=== PATIENT | male | born 1960 | race American Indian/Alaskan Native ===

== ENCOUNTER 2020-07-06 19:09 | Inpatient (IN) | payer MEDICARE, OTHER ==
--- NOTE | 2020-07-06 20:00 | Emergency Department Report ---
- General Chief complaint: BP Check / Ring removal req Stated complaint: GENERAL WEAKNESS PUI?: No Time Seen by Provider: 07/06/20 19:48 Source: patient, EMS Mode of arrival: Stretcher Limitations: No Limitations - History of Present Illness Initial comments: Mr. Alvarado is a 59-year-old male with history of hypertension, diabetes mellitus, hyperlipidemia, CVA, blindness in the right eye who presents with generalized weakness. EMS called by family members. Patient was found on the floor with decreased responsiveness. Patient states he has been weak for the past day. No new changes in his medicines. He has been eating or drinking. He denies new weakness in her extremities. He initially thought he was having a stroke. Patient found to be hypotensive via EMS. MD Complaint: generalized weakness -: days(s) (1) Location: generalized Severity: moderate Severity scale (0 -10): 0 Consistency: constant Improves with: none Worsens with: none Associated Symptoms: denies other symptoms - Related Data Allergies Allergy/AdvReac Type Severity Reaction Status Date / Time No Known Allergies Allergy Unverified 07/06/20 19:49 ED Review of Systems ROS: Stated complaint: GENERAL WEAKNESS Other details as noted in HPI Comment: All other systems reviewed and negative Constitutional: malaise. denies: chills, fever Respiratory: denies: cough, shortness of breath Cardiovascular: denies: chest pain Gastrointestinal: denies: abdominal pain, nausea, vomiting Neurological: denies: headache, numbness, paresthesias ED Past Medical Hx - Past Medical History Hx Hypertension: Yes Hx CVA: Yes Hx Diabetes: Yes Additional medical history: Hyperlipidemia - Family History Family history: hypertension - Social History Smoking Status: Never Smoker Substance Use Type: None ED Physical Exam - General Limitations: No Limitations General appearance: alert, in no apparent distress - Head Head exam: Present: atraumatic, normocephalic - Eye Eye exam: Present: other (Left eye normal appearance, right eye: globe is small, malformed, sunkened, opaque lens) - ENT ENT exam: Present: mucous membranes moist - Neck Neck exam: Present: normal inspection, full ROM - Respiratory Respiratory exam: Present: normal lung sounds bilaterally. Absent: respiratory distress, wheezes, rales - Cardiovascular Cardiovascular Exam: Present: regular rate, normal rhythm, normal heart sounds. Absent: systolic murmur, diastolic murmur, rubs, gallop - GI/Abdominal GI/Abdominal exam: Present: soft, normal bowel sounds. Absent: distended, tenderness, guarding, rebound - Rectal Rectal exam: Present: deferred - Extremities Exam Extremities exam: Present: normal inspection - Neurological Exam Neurological exam: Present: alert, oriented X3 - Psychiatric Psychiatric exam: Present: normal affect, normal mood - Skin Skin exam: Present: warm, dry, intact, normal color. Absent: rash ED Course Vital Signs 07/06/20 07/06/20 07/06/20 19:49 19:58 20:00 Temperature 97.6 F Pulse Rate 93 H 93 H 93 H Respiratory 18 27 H 24 Rate Blood Pressure Blood Pressure 87/61 [Right] O2 Sat by Pulse 99 Oximetry 07/06/20 07/06/20 07/06/20 20:15 20:30 20:46 Temperature Pulse Rate 90 93 H 91 H Respiratory 21 26 H 23 Rate Blood Pressure 87/63 95/71 90/67 Blood Pressure [Right] O2 Sat by Pulse 100 100 Oximetry 07/06/20 07/06/20 07/06/20 21:15 21:30 21:45 Temperature Pulse Rate 92 H 92 H 92 H Respiratory 26 H 25 H 27 H Rate Blood Pressure 100/70 104/76 96/69 Blood Pressure [Right] O2 Sat by Pulse 100 100 99 Oximetry 07/06/20 07/06/20 07/06/20 22:08 22:16 22:30 Temperature Pulse Rate Respiratory 29 H 26 H 30 H Rate Blood Pressure 96/69 96/69 110/79 Blood Pressure [Right] O2 Sat by Pulse 96 Oximetry ED Medical Decision Making - Lab Data Result diagrams: 07/06/20 19:59 07/06/20 19:59 - EKG Data -: EKG Interpreted by [facility] EKG shows normal: sinus rhythm, axis, ST-T waves Rate: normal - EKG Data 07/06/20 20:41 EKG obtained 2033 interpreted by tx Normal sinus rhythm rate 90 bpm normal axis normal QTC right bundle branch block no ST elevation nonischemic T wave pattern - Radiology Data Radiology results: report reviewed CT ABDOMEN AND PELVIS WITHOUT CONTRAST INDICATION / CLINICAL INFORMATION: Abdominal Pain. TECHNIQUE: Axial CT images were obtained through the abdomen and pelvis without IV contrast. All CT scans at this location are performed using CT dose reduction for ALARA by means of automated exposure control. COMPARISON: CT abdomen pelvis 04/10/2020; MRCP 04/11/2020; ultrasound abdomen 04/10/2020 FINDINGS: LOWER CHEST: Unchanged 1.3 cm spiculated cavitary opacity in the right lower lobe. Patchy mosaic attenuation similar compared to 04/10/2020. Aortic valve calcification. Multivessel coronary artery atherosclerotic calcification. HEPATOBILIARY: 2 hypodense liver lesions are visualized the right hepatic lobe on axial series 2 images 38 and 59 with the largest measuring approximately 4 cm. Finding not definitely seen on prior examinations. Gallbladder is filled with there is sludge and small calcified stones. The common bile duct remains prominent measuring approximately 7 mm. No significant intrahepatic pillar ductal dilatation is present. No findings to suggest acute cholecystitis. PANCREAS: No significant abnormality. SPLEEN: No significant abnormality. ADRENALS: No significant abnormality. GENITOURINARY: Markedly distended bladder measuring approximately 13.6 x 13.4 x 16.0 cm in AP by TV by CC dimension. There is moderate left renal pelvocaliectasis and moderate right hydroureter slightly greater when compared to the prior examination. No evidence of right- sided structure uropathy. Small right renal cyst appears stable. GASTROINTESTINAL/MESENTERY: Diverticulosis coli without evidence of diverticulitis. No evidence of bowel obstruction or inflammation. No free air or significant free fluid. RETROPERITONEUM: No significant adenopathy. REPRODUCTIVE ORGANS: Displaced by the marked be enlarged bladder. VASCULAR: Extensive atherosclerotic calcification of the abdominal aorta. Nonaneurysmal. SKELETAL SYSTEM: Postoperative change of posterior lumbar fusion and diffuse degenerative change. No acute fracture or aggressive osseous lesion. ADDITIONAL FINDINGS: Left-sided gluteal musculature lipoma. IMPRESSION: 1. Marked bladder distention with displacement of the surrounding viscera and increasing left-sided obstructive uropathy as detailed above. Consider in and out catheterization and findings may represent neurogenic bladder. 2. 1.3 cm right lower lobe spiculated lung nodule concerning for neoplasm. New hypodense right hepatic lobe lesions measure up to 4 cm. Recommend further evaluation with contrast-enhanced MR or CT. 3. Additional findings as above. - Medical Decision Making 1. septic shock due to complicated UTI: Sepsis protocol initiated upon jimmy ent's arrival. Patient received broad-spectrum antibiotics, 30 mls/kg NS bolus 2. Acute urinary retention due to BPH diagnosed according to CT: After Wilcox was placed, 900 mL of urine immediately collected in the drainage bag 3. ANAY due to obstructive uropathy 4. Enteritis seen on CT scan, nurse noted copious malodorous diarrhea. Unclear etiology. Patient is a poor historian. Considering limited portion of small bowel is involved, C. difficile colitis not as likely. Critical Care Time: Yes Critical care time in (mins) excluding proc time.: 40 Critical care attestation.: If time is entered above; I have spent that time in minutes in the direct care of this critically ill patient, excluding procedure time. 40 minutes of critical care time excluding procedures were used in the care of the patient. I reviewed electronic record. I discussed treatment plan with the nursing team members at the bedside. I came immediately to the bedside immediately upon patient's arrival. I obtained history from EMS. Also concern for septic shock with hypotension documented here and observe via EMS. I was concerned for cardiovascular collapse. Patient required multiple interventions and reassessments. ED Disposition Clinical Impression: Septic shock, Complicated UTI (urinary tract infection), Obstructive uropathy, Acute prerenal failure, BPH (benign prostatic hyperplasia), Enteritis Disposition: 09 OP ADMIT IP TO THIS HOSP Is pt being admited?: Yes Does the pt Need Aspirin: No Condition: Fair
--- NOTE | 2020-07-06 20:14 | XRay Report ---
CHEST 1 VIEW INDICATION / CLINICAL INFORMATION: weakness, generalized. COMPARISON: None available. FINDINGS: SUPPORT DEVICES: None. HEART / MEDIASTINUM: Tortuous aorta. Cardiac silhouette and hilar contours demonstrate no significant abnormality. LUNGS / PLEURA: No significant pulmonary or pleural abnormality. No pneumothorax. ADDITIONAL FINDINGS: No significant additional findings. IMPRESSION: 1. No acute cardiopulmonary process. Signer Name: Julio Tompkins MD Signed: 07/06/2020 8:10 PM Workstation Name: [id number]
[2020-07-06 20:21] LABS: Hemoglobin 11.8 gm/dl (11.8-15.2); Mean Corpuscular HGB Conc 34 % (32-34); Mean Corpuscular Volume 87 fl (84-94); Red Blood Count 4.03 M/mm3 (3.65-5.03); Red Cell Distribution Width 15.2 % (13.2-15.2)
[2020-07-06] MEDS ORDERED: cefTRIAXone/NS 2 GM/100 ML 2 GM/100 ML BAG IV ONE (20:38)
[2020-07-06] MEDS ORDERED: SODIUM CHLORIDE 0.9% 1000 ML IV SOLN IV ONE (20:39)
[2020-07-06 20:43] LABS: Albumin 2.9 g/dL (3.9-5); Calcium 8.2 mg/dL (8.4-10.2)
[2020-07-06 21:27] LABS: Basophils % (Manual) 0 % (0.0-1.8); Eosinophils % (Manual) 0 % (0.0-4.3); RBC Morphology Normal; Total Cells Counted 100
[2020-07-06 21:30] LABS: Platelet Count 84 K/mm3 (140-440)
--- NOTE | 2020-07-06 22:45 | Cat Scan Report ---
CT CHEST, ABDOMEN, AND PELVIS WITHOUT CONTRAST INDICATION / CLINICAL INFORMATION: Septic shock. TECHNIQUE: Axial CT images were obtained through the chest, abdomen, and pelvis without contrast. All CT scans a t this location are performed using CT dose reduction for ALARA by means of automated exposure contro l. COMPARISON: None available. FINDINGS: NECK BASE: No significant abnormality. HEART: Small pericardial effusion. Normal size heart. MEDIASTINUM and ALVARO: No significant abnormality. LUNGS/PLEURA: Bibasilar mosaic attenuation with interlobular septal thickening. No focal consolidatio n or mass. No pleural effusion or pneumothorax. HEPATOBILIARY: No significant abnormality. PANCREAS: No significant abnormality. SPLEEN: No significant abnormality. ADRENALS: No significant abnormality. GENITOURINARY: Bilateral mild ureteral ectasia likely secondary to marked bladder distention. Otherwi se satisfactory noncontrast appearance of the kidneys. GASTROINTESTINAL/MESENTERY: No evidence of bowel obstruction. There are multiple loops of small bowel in the left upper quadrant that demonstrate wall thickening. There is scattered mild distention of t he remaining small bowel loops which are fluid-filled. No definite evidence of free air or significan t free fluid. Appendix is not definitively visualized, however there is no evidence of right lower qu adrant inflammatory change. RETROPERITONEUM: No significant adenopathy. REPRODUCTIVE ORGANS: Prostatomegaly. VASCULAR: Tortuous, mildly atherosclerotic aorta which measures at the upper limits of normal without evidence of aneurysmal dilatation. Few foci of air in the right jugular and innominate vein possibly secondary to catheterization. SKELETAL SYSTEM: No significant abnormality. ADDITIONAL FINDINGS: None. IMPRESSION: 1. Thickening of distal left upper quadrant small bowel loops possibly representing enteritis. No maura dence of obstruction or pneumoperitoneum. Evaluation is slightly limited by lack of oral contrast. 2. Bibasilar pulmonary mosaic attenuation with interlobular septal thickening possibly representing s mall vessel or small airways disease. 3. Markedly distended bladder with mild bilateral ureteral ectasia. Consider in and out catheterizati on. 4. Small pericardial effusion. Signer Name: Julio Tompkins MD Signed: 07/06/2020 4:38 PM Workstation Name: [id number]
[2020-07-07 00:38] LABS: Bacteria,Urine 4+ /HPF (Negative); Bilirubin,Urine NEG (Negative); Blood,Urine LG (Negative); Color,Urine Yellow (Yellow); Mucus,Urine 3+ /HPF; Urobilinogen,Urine < 2.0 mg/dL (<2.0)
[2020-07-07] MEDS ORDERED: ACETAMINOPHEN 325 MG TAB PO PRN (00:45)
[2020-07-07] MEDS ORDERED: MAGNESIUM HYDROXIDE (MOM) ORAL LIQD UDC PO PRN (00:45)
[2020-07-07] MEDS ORDERED: ONDANSETRON 4 MG/2 ML INJ IV PRN (00:45)
[2020-07-07] MEDS ORDERED: DEXTROSE 50% IN WATER (25GM) 50 ML SYRINGE IV PRN (00:45)
[2020-07-07 00:55] LABS: Amphetamine Screen,Urine PRESUMPTIVE NEGATIVE; Benzodiazepines Screen,Urine PRESUMPTIVE NEGATIVE; Cannabinoid Screen,Urine PRESUMPTIVE NEGATIVE; Cocaine Screen,Urine PRESUMPTIVE NEGATIVE; Methadone Screen,Urine PRESUMPTIVE NEGATIVE; Opiate Screen,Urine PRESUMPTIVE NEGATIVE
--- NOTE | 2020-07-07 00:56 | History and Physical Report ---
History of Present Illness Date of examination: 07/07/20 Date of admission: 07/07/2020 Chief complaint: Weakness Decreased responsiveness. History of present illness: 59-year-old male with known history of hypertension, diabetes mellitus, hyperlipidemia, history of CVA, blindness in the right eye presenting to the emergency room with generalized weakness. Patient was said to have been found on the floor with decreased level of responsiveness. EMS was called by the family members. He has been having generalized weakness over the past few days and he has had decreased oral intake. Patient found to be hypotensive by EMS and therefore was given IV fluid. There has been no history of fever or chills, no chest pain or shortness of breath, no nausea vomiting, no diarrhea, no hematuria or dysuria. Work-up in the emergency room reveals urinary tract infection, sepsis, patient was also found to have obstructive uropathy. He had a distended bladder upon arrival in the emergency room with urinary retention and a Wilcox catheter was subsequently placed. Past History Past Medical History: diabetes, hypertension, hyperlipidemia, stroke, other (Right eye blindness) Past Surgical History: No surgical history Social history: no significant social history Family history: no significant family history Medications and Allergies Allergies Allergy/AdvReac Type Severity Reaction Status Date / Time No Known Allergies Allergy Unverified 07/06/20 19:49 Review of Systems Constitutional: no fever, no chills Ears, nose, mouth and throat: no nasal congestion, no sore throat Cardiovascular: no chest pain, no palpitations Respiratory: no cough, no shortness of breath Gastrointestinal: abdominal pain, nausea, no vomiting, no diarrhea, no BRBPR Genitourinary Male: urinary hesitancy, urinary retention, no dysuria, no hematuria, no flank pain Musculoskeletal: no neck pain, no low back pain Integumentary: no rash, no pruritis Neurological: weakness, no headaches, no confusion Psychiatric: no anxiety, no depression Exam - Constitutional Vitals: Temp Pulse Resp BP Pulse Ox 97.6 F 92 H 30 H 110/79 96 07/06/20 19:49 07/06/20 21:45 07/06/20 22:30 07/06/20 22:30 07/06/20 22:08 General appearance: Present: no acute distress, well-nourished - EENT Eyes: Present: PERRL, EOM intact. Absent: scleral icterus ENT: hearing intact, clear oral mucosa, dentition normal - Neck Neck: Present: supple, normal ROM - Respiratory Respiratory effort: normal Respiratory: bilateral: CTA - Cardiovascular Rhythm: regular Heart Sounds: Present: S1 & S2. Absent: gallop, systolic murmur, diastolic murmur, rub - Extremities Extremities: no ischemia, pulses intact, pulses symmetrical, No edema, normal color, Full ROM Peripheral Pulses: within normal limits - Abdominal General gastrointestinal: Present: soft, non-tender, non-distended, normal bowel sounds. Absent: mass - Integumentary Integumentary: Present: clear, warm, dry. Absent: rash - Musculoskeletal Musculoskeletal: strength equal bilaterally - Psychiatric Psychiatric: appropriate mood/affect, intact judgment & insight, cooperative - Neurologic Neurologic: CNII-XII intact, no focal deficits, moves all extremities HEART Score - HEART Score Troponin: Troponin T 0.014 ng/mL (0.00-0.029) 07/06/20 19:59 Results - Labs CBC & Chem 7: 07/06/20 19:59 07/06/20 19:59 Labs: Abnormal lab results 07/06/20 07/06/20 07/06/20 Range/Units 19:59 19:59 19:59 WBC 20.4 H (4.5-11.0) K/mm3 Hct 35.0 L (35.5-45.6) % Plt Count 84 L (140-440) K/mm3 Seg Neuts % (Manual) 91.0 H (40.0-70.0) % Lymphocytes % (Manual) 5.0 L (13.4-35.0) % Seg Neutrophils # Man 18.6 H (1.8-7.7) K/mm3 Lymphocytes # (Manual) 1.0 L (1.2-5.4) K/mm3 Sodium 133 L (137-145) mmol/L Potassium 3.4 L (3.6-5.0) mmol/L Chloride 93.2 L (98-107) mmol/L Carbon Dioxide 17 L (22-30) mmol/L BUN 65 H (9-20) mg/dL Creatinine 5.7 H (0.8-1.3) mg/dL Glucose 105 H (75-100) mg/dL Lactic Acid 2.70 H* (0.7-2.0) mmol/L Calcium 8.2 L (8.4-10.2) mg/dL Total Bilirubin 2.90 H (0.1-1.2) mg/dL Albumin 2.9 L (3.9-5) g/dL Lipase (13-60) units/L Urine WBC (Auto) (0.0-6.0) /HPF 07/06/20 07/06/20 Range/Units 20:44 23:38 WBC (4.5-11.0) K/mm3 Hct (35.5-45.6) % Plt Count (140-440) K/mm3 Seg Neuts % (Manual) (40.0-70.0) % Lymphocytes % (Manual) (13.4-35.0) % Seg Neutrophils # Man (1.8-7.7) K/mm3 Lymphocytes # (Manual) (1.2-5.4) K/mm3 Sodium (137-145) mmol/L Potassium (3.6-5.0) mmol/L Chloride (98-107) mmol/L Carbon Dioxide (22-30) mmol/L BUN (9-20) mg/dL Creatinine (0.8-1.3) mg/dL Glucose (75-100) mg/dL Lactic Acid (0.7-2.0) mmol/L Calcium (8.4-10.2) mg/dL Total Bilirubin (0.1-1.2) mg/dL Albumin (3.9-5) g/dL Lipase 8 L (13-60) units/L Urine WBC (Auto) 105.0 H (0.0-6.0) /HPF Assessment and Plan - Patient Problems (1) Septic shock Current Visit: Yes Status: Acute Plan to address problem: Possibly secondary to underlying infection. He has been placed on IV fluid and empiric IV antibiotics. We will monitor vital signs closely will await culture results. (2) Acute prerenal failure Current Visit: Yes Status: Acute Plan to address problem: We will continue to monitor BUN and creatinine. Continue IV fluid. (3) Complicated UTI (urinary tract infection) Current Visit: Yes Status: Acute Plan to address problem: Patient has been placed on empiric IV antibiotics and we will await urine culture results. (4) Obstructive uropathy Current Visit: Yes Status: Acute Plan to address problem: Patient has had a Wilcox catheter placed. (5) DVT prophylaxis Current Visit: Yes Status: Acute Plan to address problem: Patient placed on subcutaneous heparin. (6) Full code status Current Visit: Yes Status: Acute
[2020-07-07] MEDS: SODIUM CHLORIDE 0.9% 1000 ML 1,000 ML IV SCH ×2 (05:18→14:28)
[2020-07-07] MEDS: INSULIN LISPRO 100 UNIT/ML VIAL 3 mL SUB-Q SCH ×4 (09:00→21:02)
[2020-07-07] MEDS: cefTRIAXone/NS 1 GM/50 ML 1 GM/50 ML BAG IV SCH (10:52)
[2020-07-07 11:29] LABS: Hematocrit 32.2 % (35.5-45.6); Hemoglobin 11.2 gm/dl (11.8-15.2); Mean Corpuscular HGB Conc 35 % (32-34); Mean Corpuscular Volume 86 fl (84-94); Red Blood Count 3.73 M/mm3 (3.65-5.03); Red Cell Distribution Width 15.1 % (13.2-15.2)
[2020-07-07 11:30] LABS: Platelet Count 66 K/mm3 (140-440)
[2020-07-07 12:01] LABS: Calcium 7.6 mg/dL (8.4-10.2)
[2020-07-07] MEDS: HEPARIN 5,000 UNIT/1 ML VIAL SUB-Q SCH ×2 (14:24→21:29)
--- NOTE | 2020-07-07 14:24 | Consultation ---
History of Present Illness - Reason for Consult Consult date: 07/07/20 acute renal failure Requesting physician: NEGRITO GONZALEZ - History of Present Illness 59-year-old male with history of hypertension, denies a history of diabetes mellitus, prior cerebrovascular accident who had urinary retention and saw urologist a couple of months ago. A Wilcox catheter was inserted in and out and he was being evaluated for possible benign prostatic hyperplasia. He has not had a follow-up appointment yet. Presents on account of decreased responsiveness as was found on the floor by family. Patient notes that he has been feeling weak for a few days. He denies any nausea or vomiting. He does admit to hesitancy of micturition with straining and poor stream. He also had lower abdominal pain on passing urine. Patient also noticed a decrease in urine output over the last several days. In the ER, blood pressure was low at 87/[address] scan showed markedly distended urinary bladder displacing surrounding viscera with left pelvicaliectasis and right hydroureter. There was also diverticulosis without diverticulitis. Wilcox catheter was not started. BUN/creatinine were found to be elevated at 75/5.1 mg/dL with bicarbonate low at 16 mmol/L. I am consulted to assist with managing renal failure. Patient has not been taking nonsteroidal anti-inflammatory drugs and has not been exposed to radiocontrast recently. He admits to diarrhea but just since yesterday. 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 denies: smoking, alcohol abuse, prescription drug abuse Family history: no significant family history, other (His father is about 80 years old alive and well. Does not know the cause of of the mother) Medications and Allergies Allergies Allergy/AdvReac Type Severity Reaction Status Date / Time No Known Allergies Allergy Unverified 07/06/20 19:49 Active Meds: Active Medications Acetaminophen (Tylenol) 650 mg PO Q4H PRN PRN Reason: Pain MILD(1-3)/Fever >100.5/SANCHEZ Dextrose (D50w (25gm) Syringe) 0 ml IV Q30MIN PRN; Protocol PRN Reason: Hypoglycemia Heparin Sodium (Porcine) (Heparin) 5,000 unit SUB-Q Q8HR TRIPP Sodium Chloride (Nacl 0.9% 1000 Ml) 1,000 mls @ 125 mls/hr IV DIRECT TRIPP Last Admin: 07/07/20 05:18 Dose: 125 mls/hr Documented by: Ceftriaxone Sodium (Rocephin/Ns 1 Gm/50 Ml) 1 gm in 50 mls @ 100 mls/hr IV Q24HR TRIPP; Protocol Last Admin: 07/07/20 10:52 Dose: 100 mls/hr Documented by: Insulin Human Lispro (Humalog) 0 unit SUB-Q ACHS TRIPP; Protocol Last Admin: 07/07/20 12:00 Dose: Not Given Documented by: Magnesium Hydroxide (Milk Of Magnesia) 30 ml PO Q4H PRN PRN Reason: Constipation Ondansetron HCl (Zofran) 4 mg IV Q8H PRN PRN Reason: Nausea And Vomiting Sodium Chloride (Sodium Chloride Flush Syringe 10 Ml) 10 ml IV BID [facility] Last Admin: 07/07/20 10:52 Dose: 10 ml Documented by: Sodium Chloride (Sodium Chloride Flush Syringe 10 Ml) 10 ml IV PRN PRN PRN Reason: LINE FLUSH Review of Systems All systems: negative (Constitutional: no fever or chills. No anorexia or weight loss. HEENT: No sore throat or sinus drainage no hearing. He is blind in the left eye following trauma playing basketball about 20 years ago. Cardiovascular: No chest pain, shortness of breath, palpitations, lower extremity swelling or dizziness. Respiratory: No cough, sputum, shortness of breath, hemoptysis or wheezing. Gastrointestinal: No nausea, vomiting, diarrhea, had lower abdominal pain with symptoms of reflux. No hematemesis or melena. Genitourinary: See history of present illness. No hematuria. hematologic: No abnormal bleeding or bruising. Integumentary: no pruritus or rash. Neurological: No headache no focal weakness or numbness, no syncope or seizures. Musculoskeletal: No joint pains no stiffness. Psychiatry: no anxiety or depression) Exam - Vital Signs Vital signs: Vital Signs Temp Pulse Resp BP Pulse Ox 97.6 F 93 H 18 87/61 99 07/06/20 19:49 07/06/20 19:49 07/06/20 19:49 07/06/20 19:49 07/06/20 19:49 - Physical Exam Narrative exam: Middle-aged -[place] male lying in bed in no acute distress HEENT: NCAT, left opaque, pink oral mucous membrane Neck: Supple, no venous distention CVS: S1S2 RRR with no murmur, rub or gallop Chest: Clear to auscultation Abdomen: Protuberant, soft, nontender, no organomegaly, bowel sounds are present Extremities: No edema Genitourinary deferred. Wilcox catheter draining clear urine. Skin warm and dry, no rash Neuro: Awake, alert no focal deficits Results - Lab Results 07/07/20 10:58 07/07/20 10:58 Most recent lab results Calcium 7.6 mg/dL (8.4-10.2) L 07/07/20 10:58 Assessment and Plan - Patient Problems (1) Other acute kidney failure Current Visit: Yes Status: Acute Plan to address problem: Acute kidney injury secondary to obstructive uropathy. Superimposed prerenal azotemia versus acute tubular necrosis secondary to hypotension and sepsis. Patient had Wilcox catheter inserted. Quantify proteinuria. Gentle volume repletion. Follow-up electrolytes and renal function. It is unclear if patient has baseline chronic kidney disease possibly secondary to hypertensive nephrosclerosis. No old records available. Patient is not aware of this (2) Complicated UTI (urinary tract infection) Current Visit: Yes Status: Acute Plan to address problem: Follow-up urine culture. Continue empiric antibiotics. (3) Metabolic acidosis Current Visit: Yes Status: Acute Plan to address problem: Give sodium bicarbonate and IV fluids and follow-up level (4) Hypotension Current Visit: Yes Status: Acute Plan to address problem: Volume repletion and follow-up blood pressure (5) Hypocalcemia Current Visit: Yes Status: Acute Plan to address problem: Check serum intact PTH. Supplement calcium and follow-up (6) Thrombocytopenia Current Visit: Yes Status: Acute Plan to address problem: Possibly secondary to sepsis. Follow-up platelet count. (7) Hypertensive chronic kidney disease with stage 1 through stage 4 chronic k idney disease, or unspecified chronic kidney disease Current Visit: Yes Status: Acute Plan to address problem: Blood pressure was low on presentation. Follow-up blood pressure off of medications. Will resume when blood pressure increases (8) Obstructive uropathy Current Visit: Yes Status: Acute Plan to address problem: Possibly related to benign prostatic hyperplasia. Status post Wilcox catheter. Start Flomax. Will need urology re-evaluation at some point
--- NOTE | 2020-07-07 16:32 | Event Note ---
Date: 07/07/20 patient seen and examined 59-year-old male with known history of hypertension, diabetes mellitus, hyperlipidemia, history of CVA, blindness in the right eye presenting to the emergency room with generalized weakness and decreased level of responsiveness. Work-up in the emergency room reveals urinary tract infection, sepsis, patient was also found to have obstructive uropathy. He had a distended bladder upon arrival in the emergency room with urinary retention and a Wilcox catheter was subsequently placed. Cr remain elevated, cont iv fluid and monitor BMP cont iv fluid
[2020-07-07] MEDS: SODIUM BICARBONATE 650 MG TAB PO SCH (21:29)
[2020-07-08] MEDS: HEPARIN 5,000 UNIT/1 ML VIAL SUB-Q SCH ×3 (05:01→22:25)
[2020-07-08 05:22] LABS: Basophils % (Auto) 0.2 % (0.0-1.8); Eosinophils # (Auto) 0.1 K/mm3 (0.0-0.4); Eosinophils % (Auto) 0.5 % (0.0-4.3); Hematocrit 34.1 % (35.5-45.6); Hemoglobin 11.6 gm/dl (11.8-15.2); Lymphocytes # (Auto) 0.7 K/mm3 (1.2-5.4); Lymphocytes % (Auto) 4.2 % (13.4-35.0); Mean Corpuscular HGB Conc 34 % (32-34); Mean Corpuscular Volume 86 fl (84-94); Monocytes # (Auto) 0.9 K/mm3 (0.0-0.8); Monocytes % (Auto) 5.9 % (0.0-7.3); Red Blood Count 3.97 M/mm3 (3.65-5.03)
[2020-07-08 05:35] LABS: Platelet Count 61 K/mm3 (140-440)
[2020-07-08 05:37] LABS: INR 1.27 (0.87-1.13)
[2020-07-08 05:43] LABS: Calcium 8.3 mg/dL (8.4-10.2)
[2020-07-08] MEDS: INSULIN LISPRO 100 UNIT/ML VIAL 3 mL SUB-Q SCH ×3 (08:00→15:44)
[2020-07-08] MEDS: cefTRIAXone/NS 1 GM/50 ML 1 GM/50 ML BAG IV SCH (10:22)
[2020-07-08] MEDS: SODIUM BICARBONATE 650 MG TAB PO SCH ×3 (10:22→22:24)
[2020-07-08] MEDS: SODIUM CHLORIDE 0.9% 1000 ML 1,000 ML IV SCH ×2 (10:26→18:59)
--- NOTE | 2020-07-08 14:41 | Progress Note ---
Assessment and Plan - Patient Problems (1) Other acute kidney failure Current Visit: Yes Status: Acute Plan to address problem: Acute kidney injury secondary to obstructive uropathy. Superimposed prerenal azotemia versus acute tubular necrosis secondary to hypotension and sepsis. Patient had Wilcox catheter inserted. Continue gentle volume repletion. Follow- up electrolytes and renal function. It is unclear if patient has baseline chronic kidney disease possibly secondary to hypertensive nephrosclerosis. No old records available. Patient is not aware of this (2) Complicated UTI (urinary tract infection) Current Visit: Yes Status: Acute Plan to address problem: Follow-up urine culture. Continue empiric antibiotics. (3) Metabolic acidosis Current Visit: Yes Status: Acute Plan to address problem: Improving. Continue sodium bicarbonate by mouth and follow-up bicarbonate level (4) Hypotension Current Visit: Yes Status: Acute Plan to address problem: Volume repletion and follow-up blood pressure (5) Hypocalcemia Current Visit: Yes Status: Acute Plan to address problem: Calcium improving with supplementation. Serum intact PTH is high but at goal for the stage of kidney disease. Continue calcium supplement and follow-up (6) Thrombocytopenia Current Visit: Yes Status: Acute Plan to address problem: Possibly secondary to sepsis. Follow-up platelet count. (7) Hypertensive chronic kidney disease with stage 1 through stage 4 chronic kid antonio disease, or unspecified chronic kidney disease Current Visit: Yes Status: Acute Plan to address problem: Blood pressure was low on presentation. Follow-up blood pressure off of medications. Will resume when blood pressure increases (8) Obstructive uropathy Current Visit: Yes Status: Acute Plan to address problem: Possibly related to benign prostatic hyperplasia. Status post Wilcox catheter. Continue Flomax. Will need urology re-evaluation at some point -could be done as an outpatient Subjective Date of service: 07/08/20 Principal diagnosis: Acute kidney injury, suspected chronic kidney disease Interval history: Patient seen lying in bed. He has no complaints today. No nausea or vomiting. No abdominal pain. No diarrhea. No chest pain or shortness of breath. Objective - Exam Narrative Exam: Middle-aged -[place] male lying in bed in no acute distress HEENT: NCAT, left eye opaque, pink oral mucous membrane Neck: Supple, no venous distention CVS: S1S2 RRR with no murmur, rub or gallop Chest: Clear to auscultation Abdomen: Protuberant, soft, nontender, no organomegaly, bowel sounds are present Extremities: No edema Genitourinary deferred. Wilcox catheter draining clear urine. Skin warm and dry, no rash Neuro: Awake, alert no focal deficits - Vital Signs Vital signs: Vital Signs - 12hr 07/08/20 07/08/20 03:54 10:00 Temperature 98.4 F Pulse Rate 77 72 Respiratory 14 Rate Blood Pressure 135/98 O2 Sat by Pulse 92 Oximetry - Lab 07/08/20 04:17 07/08/20 04:17 Most recent lab results Calcium 8.3 mg/dL (8.4-10.2) L 07/08/20 04:17 Medications & Allergies - Medications Allergies/Adverse Reactions: Allergies No Known Allergies Allergy (Unverified 07/06/20 19:49) Active Medications: Generic Name Dose Route Start Last Admin Trade Name Freq PRN Reason Stop Dose Admin Acetaminophen 650 mg 07/07/20 00:45 Tylenol PO Q4H PRN Pain MILD(1-3)/Fever >100.5/SANCHEZ Dextrose 0 ml 07/07/20 00:45 D50w (25gm) Syringe IV Q30MIN PRN Hypoglycemia Protocol Heparin Sodium (Porcine) 5,000 unit 07/07/20 14:00 07/08/20 13:42 Heparin SUB-Q 5,000 unit Q8HR TRIPP Administration Sodium Chloride 1,000 mls @ 125 mls/hr 07/07/20 00:45 07/08/20 10:26 Nacl 0.9% 1000 Ml IV 125 mls/hr DIRECT TRIPP Administration Ceftriaxone Sodium 1 gm in 50 mls @ 100 mls/hr 07/07/20 10:00 07/08/20 10:22 Rocephin/Ns 1 Gm/50 Ml IV 100 mls/hr Q24HR TRIPP Administration Protocol Insulin Human Lispro 0 unit 07/07/20 07:30 07/08/20 11:30 Humalog SUB-Q Not Given ACHS TRIPP Protocol Magnesium Hydroxide 30 ml 07/07/20 00:45 Milk Of Magnesia PO Q4H PRN Constipation Ondansetron HCl 4 mg 07/07/20 00:45 07/08/20 10:26 Zofran IV 4 mg Q8H PRN Administration Nausea And Vomiting Sodium Bicarbonate 650 mg 07/07/20 20:00 07/08/20 13:46 Sodium Bicarbonate PO 650 mg TID TRIPP Administration Sodium Chloride 10 ml 07/07/20 10:00 07/08/20 10:22 Sodium Chloride Flush Syringe 10 Ml IV Not Given BID TRIPP Sodium Chloride 10 ml 07/07/20 00:45 Sodium Chloride Flush Syringe 10 Ml IV PRN PRN LINE FLUSH
--- NOTE | 2020-07-08 22:55 | Progress Note ---
Assessment and Plan -- Septic shock responded to fluid Possibly secondary to underlying infection. He has been placed on IV fluid and empiric IV antibiotics. We will monitor vital signs closely will await culture results. -- ANAY, likely ATN from sepsis We will continue to monitor BUN and creatinine. Continue IV fluid. nephrology consulted -- Complicated UTI (urinary tract infection) Patient has been placed on empiric IV antibiotics and we will await urine culture results. -- Obstructive uropathy Patient has had a Wilcox catheter placed. will f/u urology outpt -- HTN, resume BP meds when needed --DM type 2, cont SSI for now -- DVT prophylaxis Patient placed on subcutaneous heparin. -- Full code status 07/08: Cr 5.1 today, cont iv fluid hydration, monitor BMP, follow cx Brief History: 59-year-old male with known history of hypertension, diabetes mellitus, hyperlipidemia, history of CVA, blindness in the right eye presented to the emergency room with generalized weakness and decreased level of responsiveness. Work-up in the emergency room reveals urinary tract infection, sepsis, patient was also found to have obstructive uropathy. He had a distended bladder upon arrival in the emergency room with urinary retention and a Wilcox catheter was subsequently placed. Cr remain elevated, cont iv fluid and monitor BMP, cont iv fluid Subjective Date of service: 07/08/20 Principal diagnosis: Acute kidney injury, suspected chronic kidney disease Interval history: Patient seen and examineed vitals reviewed denies chest pain or SOB tolerating diet Objective - Exam Narrative Exam: General appearance: Present: no acute distress, well-nourished - EENT Eyes: Present: PERRL, EOM intact. Absent: scleral icterus ENT: hearing intact, clear oral mucosa, dentition normal - Neck Neck: Present: supple, normal ROM - Respiratory Respiratory effort: normal Respiratory: bilateral: CTA - Cardiovascular Rhythm: regular Heart Sounds: Present: S1 & S2. Absent: gallop, systolic murmur, diastolic murmur, rub - Extremities Extremities: no ischemia, pulses intact, pulses symmetrical, No edema, normal color, Full ROM Peripheral Pulses: within normal limits - Abdominal General gastrointestinal: Present: soft, non-tender, non-distended, normal bowel sounds. Absent: mass - Integumentary Integumentary: Present: clear, warm, dry. Absent: rash - Musculoskeletal Musculoskeletal: strength equal bilaterally - Psychiatric Psychiatric: appropriate mood/affect, intact judgment & insight, cooperative - Neurologic Neurologic: CNII-XII intact, no focal deficits, moves all extremities. right eye blindness - Constitutional Vitals: Vital Signs - 12hr 07/08/20 07/08/20 07/08/20 12:10 15:31 19:33 Temperature 98.1 F 97.9 F 98.4 F Pulse Rate 76 76 79 Respiratory 18 18 14 Rate Blood Pressure 131/101 139/103 134/99 O2 Sat by Pulse 93 91 94 Oximetry - Labs CBC & Chem 7: 07/09/20 07:39 07/09/20 07:39 Labs: Abnormal lab results 07/08/20 07/08/20 07/08/20 Range/Units 04:17 04:17 04:17 WBC 15.7 H (4.5-11.0) K/mm3 Hgb 11.6 L (11.8-15.2) gm/dl Hct 34.1 L (35.5-45.6) % Plt Count 61 L (140-440) K/mm3 Lymph % (Auto) 4.2 L (13.4-35.0) % Lymph # 0.7 L (1.2-5.4) K/mm3 [place] # 0.9 H (0.0-0.8) K/mm3 Seg Neutrophils % 89.2 H (40.0-70.0) % Seg Neutrophils # 14.1 H (1.8-7.7) K/mm3 PT 16.2 H (12.2-14.9) Sec. INR 1.27 H (0.87-1.13) Carbon Dioxide 19 L (22-30) mmol/L BUN 79 H (9-20) mg/dL Creatinine 4.2 H (0.8-1.3) mg/dL POC Glucose (70-105) Calcium 8.3 L (8.4-10.2) mg/dL PTH Intact (15-65) pg/mL 07/08/20 07/08/20 07/08/20 Range/Units 04:17 11:34 15:50 WBC (4.5-11.0) K/mm3 Hgb (11.8-15.2) gm/dl Hct (35.5-45.6) % Plt Count (140-440) K/mm3 Lymph % (Auto) (13.4-35.0) % Lymph # (1.2-5.4) K/mm3 [place] # (0.0-0.8) K/mm3 Seg Neutrophils % (40.0-70.0) % Seg Neutrophils # (1.8-7.7) K/mm3 PT (12.2-14.9) Sec. INR (0.87-1.13) Carbon Dioxide (22-30) mmol/L BUN (9-20) mg/dL Creatinine (0.8-1.3) mg/dL POC Glucose 131 H 125 H (70-105) Calcium (8.4-10.2) mg/dL PTH Intact 177.0 H (15-65) pg/mL 07/08/20 Range/Units 20:42 WBC (4.5-11.0) K/mm3 Hgb (11.8-15.2) gm/dl Hct (35.5-45.6) % Plt Count (140-440) K/mm3 Lymph % (Auto) (13.4-35.0) % Lymph # (1.2-5.4) K/mm3 [place] # (0.0-0.8) K/mm3 Seg Neutrophils % (40.0-70.0) % Seg Neutrophils # (1.8-7.7) K/mm3 PT (12.2-14.9) Sec. INR (0.87-1.13) Carbon Dioxide (22-30) mmol/L BUN (9-20) mg/dL Creatinine (0.8-1.3) mg/dL POC Glucose 133 H (70-105) Calcium (8.4-10.2) mg/dL PTH Intact (15-65) pg/mL HEART Score - HEART Score Troponin: Troponin T 0.014 ng/mL (0.00-0.029) 07/06/20 19:59
[2020-07-09] MEDS: INSULIN LISPRO 100 UNIT/ML VIAL 3 mL SUB-Q SCH ×5 (00:06→21:56)
[2020-07-09] MEDS: HEPARIN 5,000 UNIT/1 ML VIAL SUB-Q SCH ×2 (06:26→13:15)
[2020-07-09] MEDS: SODIUM CHLORIDE 0.9% 1000 ML 1,000 ML IV SCH ×3 (06:28→22:05)
[2020-07-09 08:06] LABS: Basophils % (Auto) 0.2 % (0.0-1.8); Eosinophils % (Auto) 0.1 % (0.0-4.3); Hemoglobin 11.7 gm/dl (11.8-15.2); Lymphocytes # (Auto) 0.8 K/mm3 (1.2-5.4); Lymphocytes % (Auto) 6.2 % (13.4-35.0); Mean Corpuscular HGB Conc 34 % (32-34); Mean Corpuscular Volume 86 fl (84-94); Monocytes # (Auto) 0.9 K/mm3 (0.0-0.8); Monocytes % (Auto) 6.9 % (0.0-7.3); Red Blood Count 3.95 M/mm3 (3.65-5.03); Red Cell Distribution Width 15.3 % (13.2-15.2)
[2020-07-09 08:15] LABS: Platelet Count 69 K/mm3 (140-440)
[2020-07-09 08:20] LABS: Calcium 8.4 mg/dL (8.4-10.2)
[2020-07-09] MEDS: cefTRIAXone/NS 1 GM/50 ML 1 GM/50 ML BAG IV SCH (09:23)
[2020-07-09] MEDS: SODIUM BICARBONATE 650 MG TAB PO SCH ×3 (09:23→21:57)
--- NOTE | 2020-07-09 11:25 | Progress Note ---
Assessment and Plan - Patient Problems (1) Acute prerenal failure Current Visit: Yes Status: Acute Plan to address problem: Acute kidney injury secondary to obstructive uropathy. renal function improving on smith. It is unclear if patient has baseline chronic kidney disease possibly secondary to hypertensive nephrosclerosis. (2) Complicated UTI (urinary tract infection) Current Visit: Yes Status: Acute Plan to address problem: Follow-up urine culture. Continue empiric antibiotics. (3) Obstructive uropathy Current Visit: Yes Status: Acute Plan to address problem: Possibly related to benign prostatic hyperplasia. Status post Smith catheter. Continue Flomax. Will need urology re-evaluation at some point -could be done as an outpatient (4) Metabolic acidosis Current Visit: Yes Status: Acute Plan to address problem: Improving. Continue sodium bicarbonate by mouth and follow-up bicarbonate level (5) Hypocalcemia Current Visit: Yes Status: Acute Plan to address problem: Calcium improving with supplementation. Serum intact PTH is high but at goal for the stage of kidney disease. Continue calcium supplement and follow-up (6) Thrombocytopenia Current Visit: Yes Status: Acute Plan to address problem: Possibly secondary to sepsis. Follow-up platelet count. (7) Hypertensive chronic kidney disease with stage 1 through stage 4 chronic kidney disease, or unspecified chronic kidney disease Current Visit: Yes Status: Acute Plan to address problem: Blood pressure was low on presentation. Follow-up blood pressure off of medications. Will resume when blood pressure increases Subjective Date of service: 07/09/20 Principal diagnosis: Acute kidney injury, suspected chronic kidney disease Interval history: Pt awake alert, in no acute distress, on smith with excellent UOP Objective - Vital Signs Vital signs: Vital Signs - 12hr 07/09/20 03:48 Temperature 98.1 F Pulse Rate 72 Respiratory 18 Rate Blood Pressure 138/104 O2 Sat by Pulse 96 Oximetry - General Appearance General appearance: well-developed, well-nourished, appears stated age EENT: ATNC, PERRL, mucous membranes moist Neck: no JVD Respiratory: Present: Clear to Ascultation Cardiology: regular, S1S2 Gastrointestinal: normoactive bowel sounds Integumentary: no rash, other (no edema ) Neurologic: no focal deficit, alert and oriented x3, strength 5/5, CN 3-12 intact Psychiatric: mood/affect appropriate, cooperative - Lab 07/09/20 07:39 07/09/20 07:39 Most recent lab results Calcium 8.4 mg/dL (8.4-10.2) 07/09/20 07:39 Medications & Allergies - Medications Allergies/Adverse Reactions: Allergies No Known Allergies Allergy (Unverified 07/06/20 19:49) Active Medications: Generic Name Dose Route Start Last Admin Trade Name Freq PRN Reason Stop Dose Admin Acetaminophen 650 mg 07/07/20 00:45 Tylenol PO Q4H PRN Pain MILD(1-3)/Fever >100.5/SANCHEZ Dextrose 0 ml 07/07/20 00:45 D50w (25gm) Syringe IV Q30MIN PRN Hypoglycemia Protocol Heparin Sodium (Porcine) 5,000 unit 07/07/20 14:00 07/09/20 06:26 Heparin SUB-Q 5,000 unit Q8HR TRIPP Administration Sodium Chloride 1,000 mls @ 125 mls/hr 07/07/20 00:45 07/09/20 06:28 Nacl 0.9% 1000 Ml IV 125 mls/hr DIRECT TRIPP Administration Ceftriaxone Sodium 1 gm in 50 mls @ 100 mls/hr 07/07/20 10:00 07/09/20 09:23 Rocephin/Ns 1 Gm/50 Ml IV 100 mls/hr Q24HR TRIPP Administration Protocol Insulin Human Lispro 0 unit 07/07/20 07:30 07/09/20 09:23 Humalog SUB-Q Not Given ACHS TRIPP Protocol Magnesium Hydroxide 30 ml 07/07/20 00:45 Milk Of Magnesia PO Q4H PRN Constipation Ondansetron HCl 4 mg 07/07/20 00:45 07/08/20 10:26 Zofran IV 4 mg Q8H PRN Administration Nausea And Vomiting Sodium Bicarbonate 650 mg 07/07/20 20:00 07/09/20 09:23 Sodium Bicarbonate PO 650 mg TID TRIPP Administration Sodium Chloride 10 ml 07/07/20 10:00 07/09/20 09:23 Sodium Chloride Flush Syringe 10 Ml IV 10 ml BID TRIPP Administration Sodium Chloride 10 ml 07/07/20 00:45 Sodium Chloride Flush Syringe 10 Ml IV PRN PRN LINE FLUSH
--- NOTE | 2020-07-09 14:09 | Consultation ---
History of Present Illness - Reason for Consult Consult date: 07/09/20 bacteremia Requesting physician: ALBERTO HICKS - History of Present Illness The patient is a 59-year-old male with hypertension, diabetes, hyperlipidemia, prior CVA, right eye blindness was admitted to the hospital on 07/07/2020 with generalized weakness and decreased responsiveness. Upon additional evaluation, UA was concerning for UTI and patient was also noted to have a distended urinary bladder which improved after a Wilcox catheter was placed. Blood cultures grew Klebsiella, patient has been on IV ceftriaxone. Infectious diseases was consulted for additional evaluation. Currently, eating his lunch, has been afebrile. Wilcox remains in place and draining urine. Denies any complaints at this time. Patient reports he recently started seeing a urologist in [place] about 2 months ago and has an upcoming appointment on Thursday. Review of Systems: General: no fevers,chills or rigors HEENT: no new visual disturbance Respiratory: No cough, sputum, hemoptysis or shortness of breath Cardiovascular: No chest pain, syncope Gastrointestinal: No nausea, vomiting or diarrhea Genitourinary: No dysuria or hematuria Musculoskeletal: No new or worsening neck pain or back pain Neurologic: No headaches, seizures Hematologic: No easy bruising or bleeding Endocrine: No night sweats or acute weight loss Skin: negative for rash, jaundice Psychiatric: No suicidal or homicidal ideation Past History Past Medical History: hypertension, hyperlipidemia, stroke, other (Right eye blindness) Past Surgical History: No surgical history Social history: no significant social history, lives with family (Lives with his ), other (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 denies: smoking, alcohol abuse, prescription drug abuse Family history: no significant family history, other (His father is about 80 years old alive and well. Does not know the cause of of the mother) Medications and Allergies Allergies Allergy/AdvReac Type Severity Reaction Status Date / Time No Known Allergies Allergy Unverified 07/06/20 19:49 Active Meds: Active Medications Acetaminophen (Tylenol) 650 mg PO Q4H PRN PRN Reason: Pain MILD(1-3)/Fever >100.5/SANCHEZ Dextrose (D50w (25gm) Syringe) 0 ml IV Q30MIN PRN; Protocol PRN Reason: Hypoglycemia Heparin Sodium (Porcine) (Heparin) 5,000 unit SUB-Q Q8HR TRIPP Last Admin: 07/09/20 13:15 Dose: 5,000 unit Documented by: Sodium Chloride (Nacl 0.9% 1000 Ml) 1,000 mls @ 125 mls/hr IV DIRECT TRIPP Last Admin: 07/09/20 06:28 Dose: 125 mls/hr Documented by: Ceftriaxone Sodium (Rocephin/Ns 1 Gm/50 Ml) 1 gm in 50 mls @ 100 mls/hr IV Q24HR TRIPP; Protocol Last Admin: 07/09/20 09:23 Dose: 100 mls/hr Documented by: Insulin Human Lispro (Humalog) 0 unit SUB-Q ACHS TRIPP; Protocol Last Admin: 07/09/20 12:44 Dose: Not Given Documented by: Magnesium Hydroxide (Milk Of Magnesia) 30 ml PO Q4H PRN PRN Reason: Constipation Ondansetron HCl (Zofran) 4 mg IV Q8H PRN PRN Reason: Nausea And Vomiting Last Admin: 07/08/20 10:26 Dose: 4 mg Documented by: Sodium Bicarbonate (Sodium Bicarbonate) 650 mg PO TID [facility] Last Admin: 07/09/20 13:14 Dose: 650 mg Documented by: Sodium Chloride (Sodium Chloride Flush Syringe 10 Ml) 10 ml IV BID [facility] Last Admin: 07/09/20 09:23 Dose: 10 ml Documented by: Sodium Chloride (Sodium Chloride Flush Syringe 10 Ml) 10 ml IV PRN PRN PRN Reason: LINE FLUSH Physical Examination - Physical Exam Narrative exam: Physical Exam: Constitutional: Alert, cooperative. No acute distress Head, Ears, Nose: Normocephalic, atraumatic. External ears, nose normal Eyes: R eye blindness. No icterus. No ptosis. Neck: Supple, no meningeal signs Cardiovascular: S1, S2 normal. Respiratory: Good air entry, clear to auscultation bilaterally GI: Soft, non-tender; bowel sounds normal. No peritoneal signs. Indwelling Wilcox + Musculoskeletal: No pedal edema, no cyanosis. Skin: No rash or abscess Hem/Lymphatic: No palpable cervical or supraclavicular nodes. No lymphangitis Psych: Mood ok. Affect normal Neurological: Awake, alert, oriented. No gross abnormality - Constitutional Vitals: Vital Signs Temp Pulse Resp BP Pulse Ox 98.1 F 70 18 138/104 97 08/24/20 03:48 07/09/20 10:00 07/09/20 10:00 07/09/20 03:48 07/09/20 10:00 Temperature -Last 24 Hours Temperature 98.1 F Temperature 98.4 F Temperature 98.4 F Temperature 97.9 F Results - Labs CBC & Chem 7: 07/09/20 07:39 07/09/20 07:39 Labs: Abnormal lab results 07/06/20 07/08/20 07/08/20 Range/Units 19:59 15:50 20:42 WBC 20.4 H (4.5-11.0) K/mm3 Hgb (11.8-15.2) gm/dl Hct 35.0 L (35.5-45.6) % RDW (13.2-15.2) % Plt Count 84 L (140-440) K/mm3 Lymph % (Auto) (13.4-35.0) % Lymph # (1.2-5.4) K/mm3 [place] # (0.0-0.8) K/mm3 Seg Neutrophils % (40.0-70.0) % Seg Neuts % (Manual) 91.0 H (40.0-70.0) % Lymphocytes % (Manual) 5.0 L (13.4-35.0) % Seg Neutrophils # (1.8-7.7) K/mm3 Seg Neutrophils # Man 18.6 H (1.8-7.7) K/mm3 Lymphocytes # (Manual) 1.0 L (1.2-5.4) K/mm3 Potassium (3.6-5.0) mmol/L Carbon Dioxide (22-30) mmol/L BUN (9-20) mg/dL Creatinine (0.8-1.3) mg/dL Glucose (75-100) mg/dL POC Glucose 125 H 133 H (70-105) 07/09/20 07/09/20 07/09/20 Range/Units 07:39 07:39 12:29 WBC 13.7 H (4.5-11.0) K/mm3 Hgb 11.7 L (11.8-15.2) gm/dl Hct 34.0 L (35.5-45.6) % RDW 15.3 H (13.2-15.2) % Plt Count 69 L (140-440) K/mm3 Lymph % (Auto) 6.2 L (13.4-35.0) % Lymph # 0.8 L (1.2-5.4) K/mm3 [place] # 0.9 H (0.0-0.8) K/mm3 Seg Neutrophils % 86.6 H (40.0-70.0) % Seg Neuts % (Manual) (40.0-70.0) % Lymphocytes % (Manual) (13.4-35.0) % Seg Neutrophils # 11.9 H (1.8-7.7) K/mm3 Seg Neutrophils # Man (1.8-7.7) K/mm3 Lymphocytes # (Manual) (1.2-5.4) K/mm3 Potassium 3.5 L (3.6-5.0) mmol/L Carbon Dioxide 20 L (22-30) mmol/L BUN 65 H (9-20) mg/dL Creatinine 2.6 H (0.8-1.3) mg/dL Glucose 113 H (75-100) mg/dL POC Glucose 137 H (70-105) - Imaging and Cardiology Chest x-ray: report reviewed, image reviewed (no pneumonia) CT scan - abdomen: report reviewed, image reviewed (enlarged bladder) Assessment and Plan Cultures: Blood culture: Klebsiella Urine culture: Mixed growth A/P: 59-year-old male with hypertension, diabetes, hyperlipidemia, prior CVA, right eye blindness: #Sepsis, Klebsiella bacteremia, secondary to UTI: improving. #Obstructive uropathy, ANAY likely from from enlarged prostate: Creatinine improving. Now has indwelling Wilcox catheter. #Thrombocytopenia: probably from sepsis Recs: Continue IV ceftriaxone while inpatient, upon discharge, switch to p.o. levofloxacin 750 mg daily (if renal function normal) x 7 more days to complete a total of 10 days Has appointment with urology Dr. Hernandez from [facility] in [place] d/w [facility] Tash Knight [facility] C: [phone] O: [phone] F: [phone]
--- NOTE | 2020-07-09 15:58 | Progress Note ---
Assessment and Plan -- Septic shock responded to fluid Possibly secondary to underlying infection. He has been placed on IV fluid and empiric IV antibiotics. We will monitor vital signs closely will await culture results. -- ANAY, likely ATN from sepsis Cr 5.7>5.1>4.2 - improving We will continue to monitor BUN and creatinine. Continue IV fluid. nephrology consulted -- Complicated UTI (urinary tract infection) Patient has been placed on empiric IV antibiotics and we will await urine culture results. --Bacteremia with gm -ve rods cont iv abx, repeat Cx, consult ID -- Obstructive uropathy Patient has had a Wilcox catheter placed. will f/u urology outpt -- HTN, resume BP meds when needed --DM type 2, cont SSI for now -- DVT prophylaxis Patient placed on subcutaneous heparin. -- Full code status 07/08: Cr 4.2 today, cont iv fluid hydration, monitor BMP, follow cx 07/09: Cr 2.6, Urine and blood cx positive for Klebsiella, consult ID. if stable possible d/c tomorrow. Brief History: 59-year-old male with known history of hypertension, diabetes mellitus, hyperlipidemia, history of CVA, blindness in the right eye presented to the emergency room with generalized weakness and decreased level of responsiveness. Work-up in the emergency room reveals urinary tract infection, sepsis, patient was also found to have obstructive uropathy. He had a distended bladder upon arrival in the emergency room with urinary r etention and a Wilcox catheter was subsequently placed. Cr remain elevated, cont iv fluid and monitor BMP, cont iv fluid Subjective Date of service: 07/09/20 Principal diagnosis: Acute kidney injury, suspected chronic kidney disease Interval history: Patient seen and examineed vitals reviewed denies chest pain or SOB tolerating diet Objective - Exam Narrative Exam: General appearance: Present: no acute distress, well-nourished - EENT Eyes: Present: PERRL, EOM intact. Absent: scleral icterus ENT: hearing intact, clear oral mucosa, dentition normal - Neck Neck: Present: supple, normal ROM - Respiratory Respiratory effort: normal Respiratory: bilateral: CTA - Cardiovascular Rhythm: regular Heart Sounds: Present: S1 & S2. Absent: gallop, systolic murmur, diastolic murmur, rub - Extremities Extremities: no ischemia, pulses intact, pulses symmetrical, No edema, normal color, Full ROM Peripheral Pulses: within normal limits - Abdominal General gastrointestinal: Present: soft, non-tender, non-distended, normal bowel sounds. Absent: mass - Integumentary Integumentary: Present: clear, warm, dry. Absent: rash - Musculoskeletal Musculoskeletal: strength equal bilaterally - Psychiatric Psychiatric: appropriate mood/affect, intact judgment & insight, cooperative - Neurologic Neurologic: CNII-XII intact, no focal deficits, moves all extremities. right eye blindness - Constitutional Vitals: Vital Signs - 12hr 07/09/20 07/09/20 07:00 10:00 Pulse Rate 71 Pulse Rate [ 70 Right Radial] Respiratory 18 Rate O2 Sat by Pulse 97 Oximetry - Labs CBC & Chem 7: 07/09/20 07:39 07/09/20 07:39 Labs: Abnormal lab results 07/06/20 07/08/20 07/09/20 Range/Units 19:59 20:42 07:39 WBC 20.4 H 13.7 H (4.5-11.0) K/mm3 Hgb 11.7 L (11.8-15.2) gm/dl Hct 35.0 L 34.0 L (35.5-45.6) % RDW 15.3 H (13.2-15.2) % Plt Count 84 L 69 L (140-440) K/mm3 Lymph % (Auto) 6.2 L (13.4-35.0) % Lymph # 0.8 L (1.2-5.4) K/mm3 [place] # 0.9 H (0.0-0.8) K/mm3 Seg Neutrophils % 86.6 H (40.0-70.0) % Seg Neuts % (Manual) 91.0 H (40.0-70.0) % Lymphocytes % (Manual) 5.0 L (13.4-35.0) % Seg Neutrophils # 11.9 H (1.8-7.7) K/mm3 Seg Neutrophils # Man 18.6 H (1.8-7.7) K/mm3 Lymphocytes # (Manual) 1.0 L (1.2-5.4) K/mm3 Potassium (3.6-5.0) mmol/L Carbon Dioxide (22-30) mmol/L BUN (9-20) mg/dL Creatinine (0.8-1.3) mg/dL Glucose (75-100) mg/dL POC Glucose 133 H (70-105) 07/09/20 07/09/20 Range/Units 07:39 12:29 WBC (4.5-11.0) K/mm3 Hgb (11.8-15.2) gm/dl Hct (35.5-45.6) % RDW (13.2-15.2) % Plt Count (140-440) K/mm3 Lymph % (Auto) (13.4-35.0) % Lymph # (1.2-5.4) K/mm3 [place] # (0.0-0.8) K/mm3 Seg Neutrophils % (40.0-70.0) % Seg Neuts % (Manual) (40.0-70.0) % Lymphocytes % (Manual) (13.4-35.0) % Seg Neutrophils # (1.8-7.7) K/mm3 Seg Neutrophils # Man (1.8-7.7) K/mm3 Lymphocytes # (Manual) (1.2-5.4) K/mm3 Potassium 3.5 L (3.6-5.0) mmol/L Carbon Dioxide 20 L (22-30) mmol/L BUN 65 H (9-20) mg/dL Creatinine 2.6 H (0.8-1.3) mg/dL Glucose 113 H (75-100) mg/dL POC Glucose 137 H (70-105) HEART Score - HEART Score Troponin: Troponin T 0.014 ng/mL (0.00-0.029) 07/06/20 19:59
[2020-07-09] MEDS: METOPROLOL TARTRATE 25 MG TAB PO SCH (21:56)
[2020-07-10] MEDS: SODIUM CHLORIDE 0.9% 1000 ML 1,000 ML IV SCH (06:15)
[2020-07-10] MEDS: INSULIN LISPRO 100 UNIT/ML VIAL 3 mL SUB-Q SCH ×2 (07:56→11:39)
[2020-07-10 09:09] VITALS: BP 135/94
[2020-07-10 09:55] LABS: Calcium 8.2 mg/dL (8.4-10.2)
[2020-07-10] MEDS: SODIUM BICARBONATE 650 MG TAB PO SCH ×2 (09:58→13:47)
[2020-07-10] MEDS: cefTRIAXone/NS 1 GM/50 ML 1 GM/50 ML BAG IV SCH (09:58)
[2020-07-10] MEDS: METOPROLOL TARTRATE 25 MG TAB PO SCH (09:59)
--- NOTE | 2020-07-10 10:09 | Progress Note ---
Assessment and Plan - Patient Problems (1) Acute prerenal failure Current Visit: Yes Status: Acute Plan to address problem: Acute kidney injury secondary to obstructive uropathy. renal function improving on smith. It is unclear if patient has baseline chronic kidney disease possibly secondary to hypertensive nephrosclerosis. (2) Complicated UTI (urinary tract infection) Current Visit: Yes Status: Acute Plan to address problem: Follow-up urine culture. Continue empiric antibiotics. (3) Obstructive uropathy Current Visit: Yes Status: Acute Plan to address problem: Possibly related to benign prostatic hyperplasia. Status post Smith catheter. Continue Flomax. Will need urology re-evaluation at some point -could be done as an outpatient (4) Metabolic acidosis Current Visit: Yes Status: Acute Plan to address problem: Improving. Continue sodium bicarbonate by mouth and follow-up bicarbonate level (5) Hypocalcemia Current Visit: Yes Status: Acute Plan to address problem: Calcium improving with supplementation. Serum intact PTH is high but at goal for the stage of kidney disease. Continue calcium supplement and follow-up (6) Thrombocytopenia Current Visit: Yes Status: Acute Plan to address problem: Possibly secondary to sepsis. Follow-up platelet count. (7) Hypertensive chronic kidney disease with stage 1 through stage 4 chronic kidney disease, or unspecified chronic kidney disease Current Visit: Yes Status: Acute Plan to address problem: Blood pressure was low on presentation. Follow-up blood pressure off of medications. Will resume when blood pressure increases Subjective Date of service: 07/10/20 Principal diagnosis: Acute kidney injury, suspected chronic kidney disease Interval history: Pt awake alert, in no acute distress, on smith with excellent UOP Objective - Vital Signs Vital signs: Vital Signs - 12hr 07/09/20 07/09/20 07/09/20 22:25 23:22 23:59 Temperature 98.5 F Pulse Rate 65 62 Pulse Rate [ 73 Apical] Pulse Rate [ Right Radial] Respiratory 18 16 Rate Blood Pressure 137/105 O2 Sat by Pulse 97 99 Oximetry 07/10/20 07/10/20 07/10/20 03:38 07:11 08:06 Temperature 98.5 F 98.0 F Pulse Rate 63 64 Pulse Rate [ 74 Apical] Pulse Rate [ 70 Right Radial] Respiratory 18 18 18 Rate Blood Pressure 139/100 135/94 O2 Sat by Pulse 99 97 97 Oximetry 07/10/20 09:59 Temperature Pulse Rate 74 Pulse Rate [ Apical] Pulse Rate [ Right Radial] Respiratory Rate Blood Pressure 135/94 O2 Sat by Pulse Oximetry - General Appearance General appearance: well-developed, well-nourished, appears stated age EENT: ATNC, PERRL, mucous membranes moist Neck: no JVD Respiratory: Present: Clear to Ascultation Cardiology: regular, S1S2 Gastrointestinal: normoactive bowel sounds Integumentary: no rash, other (no edema ) Neurologic: no focal deficit, alert and oriented x3, strength 5/5, CN 3-12 intact Psychiatric: mood/affect appropriate, cooperative - Lab 07/09/20 07:39 07/10/20 08:55 Most recent lab results Calcium 8.2 mg/dL (8.4-10.2) L 07/10/20 08:55 Medications & Allergies - Medications Allergies/Adverse Reactions: Allergies No Known Allergies Allergy (Unverified 07/06/20 19:49) Home Medications: Home Medications Medication Instructions Recorded Confirmed Last Taken Type Losartan/Hydrochlorothiazide 1 each PO QDAY 07/09/20 07/09/20 Unknown History [Losartan-Hctz 50-12.5 mg Tab] Active Medications: Generic Name Dose Route Start Last Admin Trade Name Freq PRN Reason Stop Dose Admin Acetaminophen 650 mg 07/07/20 00:45 07/09/20 22:04 Tylenol PO 650 mg Q4H PRN Administration Pain MILD(1-3)/Fever >100.5/SANCHEZ Dextrose 0 ml 07/07/20 00:45 D50w (25gm) Syringe IV Q30MIN PRN Hypoglycemia Protocol Sodium Chloride 1,000 mls @ 125 mls/hr 07/07/20 00:45 07/10/20 06:15 Nacl 0.9% 1000 Ml IV 125 mls/hr DIRECT TRIPP Administration Ceftriaxone Sodium 1 gm in 50 mls @ 100 mls/hr 07/07/20 10:00 07/10/20 09:58 Rocephin/Ns 1 Gm/50 Ml IV 100 mls/hr Q24HR TRIPP Administration Protocol Insulin Human Lispro 0 unit 07/07/20 07:30 07/10/20 07:56 Humalog SUB-Q Not Given ACHS TRIPP Protocol Magnesium Hydroxide 30 ml 07/07/20 00:45 Milk Of Magnesia PO Q4H PRN Constipation Metoprolol Tartrate 25 mg 07/09/20 22:00 07/10/20 09:59 Metoprolol PO 25 mg BID TRIPP Administration Ondansetron HCl 4 mg 07/07/20 00:45 07/08/20 10:26 Zofran IV 4 mg Q8H PRN Administration Nausea And Vomiting Sodium Bicarbonate 650 mg 07/07/20 20:00 07/10/20 09:58 Sodium Bicarbonate PO 650 mg TID TRIPP Administration Sodium Chloride 10 ml 07/07/20 10:00 07/10/20 09:59 Sodium Chloride Flush Syringe 10 Ml IV 10 ml BID TRIPP Administration Sodium Chloride 10 ml 07/07/20 00:45 Sodium Chloride Flush Syringe 10 Ml IV PRN PRN LINE FLUSH
[2020-07-10] MEDS ORDERED: POTASSIUM CHLORIDE ER 20 MEQ TAB PO SCH (11:00)
--- NOTE | 2020-07-10 11:03 | Discharge Summary ---
Providers - Providers Date of Admission: 07/07/20 10:29 Attending physician: LANE AVREY MD 07/07/20 00:45 Consult to Physician [CONS] Routine Comment: Consulting Provider: CATA KENNEDY Physician Instructions: Reason For Exam: ANAY 07/07/20 00:47 Consult to Dietitian/Nutrition [CONS] Routine Physician Instructions: Reason For Exam: Reason for Consult: Diet education 07/09/20 13:27 Consult to Physician [CONS] Routine Comment: Consulting Provider: LETA DELATORRE Physician Instructions: Reason For Exam: bacteremia [facility] Reason for admission: Sepsis Condition: Stable Hospital course: Brief History: 59-year-old male with known history of hypertension, diabetes mellitus, hyperlipidemia, history of CVA, blindness in the right eye presented to the emergency room with generalized weakness and decreased level of responsiveness. Work-up in the emergency room reveals urinary tract infection, sepsis, patient was also found to have obstructive uropathy. He had a distended bladder upon arrival in the emergency room with urinary retention and a Wilcox catheter was subsequently placed. Cr remain elevated, cont iv fluid and monitor BMP, cont iv fluid -- Septic shock responded to fluid Possibly secondary to underlying infection. He has been placed on IV fluid and empiric IV antibiotics. We will monitor vital signs closely will await culture results. 07/10: Cultures were consistent with Klebsiella pneumonia. I did discuss with the patient extensively the patient states that he follows with a urologist. Has an appointment planned for this July 13. I also discussed with civil cadd technician and the patient will be discharged with Wilcox to leg bag. Patient tells me he has history of BPH and follows with urologist outpatient. He is ACH/lisinopril was discontinued and in its place metoprolol was ordered with good control of blood pressure. He was educated on this. I discussed with ID and patient will be discharged with Levaquin 500 mg daily for 7 days. 07/08: Cr 4.2 today, cont iv fluid hydration, monitor BMP, follow cx 07/09: Cr 2.6, Urine and blood cx positive for Klebsiella, consult ID. if stable possible d/c tomorrow. -- ANAY, likely ATN from sepsis secondary to obstructive uropathy Cr 5.7>5.1>4.2 - improving We will continue to monitor BUN and creatinine. Continue IV fluid. nephrology consulted -- Complicated UTI (urinary tract infection) Patient has been placed on empiric IV antibiotics and we will await urine cult ure results. --Bacteremia with gm -ve rods cont iv abx, repeat Cx, consult ID -- Obstructive uropathy Patient has had a Wilcox catheter placed. will f/u urology outpt -- HTN, resume BP meds when needed --DM type 2, cont SSI for now --BPH with obstructive uropathy Disposition: [id number] HOME UNDER [facility] Time spent for discharge: 35 minutes Core Measure Documentation - Palliative Care Palliative Care/ Comfort Measures: Not Applicable - Core Measures Any of the following diagnoses?: none Exam - Physical Exam Narrative exam: VITAL SIGNS: Reviewed. GENERAL: The patient appears normally developed, Vital signs as documented. HEAD: No signs of head trauma. EYES: Right eye ptosis. Extraocular motions intact. EARS: Hearing grossly intact. MOUTH: Oropharynx is normal. NECK: No adenopathy, no JVD. CHEST: Chest with clear breath sounds bilaterally. No wheezes, rales, or rhonchi. CARDIAC: Regular rate and rhythm. S1 and S2, without murmurs, gallops, or rubs. VASCULAR: No Edema. Peripheral pulses normal and equal in all extremities. ABDOMEN: Soft, non tender and non distended. No rebound or guarding, and no masses palpated. Bowel Sounds normal. MUSCULOSKELETAL: Good range of motion of all major joints. Extremities without clubbing, cyanosis or edema. NEUROLOGIC EXAM: Alert and oriented x 3 No focal sensory or strength deficit s. Speech normal. Follows commands. PSYCHIATRIC: Mood normal. SKIN: detail exam as documented in skin assessment - Constitutional Vitals: Temp Pulse Resp BP Pulse Ox 98.0 F 74 18 135/94 97 07/10/20 07:11 07/10/20 09:59 07/10/20 08:06 07/10/20 09:59 07/10/20 08:06 Plan Activity: advance as tolerated, fall precautions Diet: low fat, renal Special Instructions: home health RN, other (With Wilcox to leg bag) Follow up with: CHRIS CAMPBELL MD [Primary Care Provider] - 7 Days KRYSTA PRINCE MD [Staff Physician] - 7 Days GELACIO SHIRLEY MD [Staff Physician] - 7 Days Prescriptions: levoFLOXacin [Levaquin TAB] 500 mg PO QDAY #7 tablet Metoprolol [Lopressor TAB] 25 mg PO BID #60 tablet Sodium Bicarbonate 650 mg PO TID #30 tablet
--- NOTE | 2020-07-10 14:01 | Progress Note ---
Assessment and Plan Cultures: Blood culture: Klebsiella Urine culture: Mixed growth A/P: 59-year-old male with hypertension, diabetes, hyperlipidemia, prior CVA, right eye blindness: #Sepsis, Klebsiella bacteremia, secondary to UTI: improving. #Obstructive uropathy, ANAY likely from from enlarged prostate: Creatinine improving. Now has indwelling Wilcox catheter. #Thrombocytopenia: probably from sepsis Recs: Creatinine continues to improve, OK for discharge on levofloxacin 500 mg daily x 7 more days to complete a total of 10 days Has appointment with urology Dr. Hernandez from [facility] in [place] d/w [facility]. Jake Knight MD, [facility] ([facility]) C: [phone] O: [phone] F: [phone] Subjective Date of service: 07/10/20 Principal diagnosis: Acute kidney injury, suspected chronic kidney disease Interval history: Denies any fever. Feels well. Objective - Exam Narrative Exam: Physical Exam: Constitutional: Alert, cooperative. No acute distress Head, Ears, Nose: Normocephalic, atraumatic. External ears, nose normal Eyes: R eye blindness. No icterus. No ptosis. Neck: Supple, no meningeal signs Cardiovascular: S1, S2 normal. Respiratory: Good air entry, clear to auscultation bilaterally GI: Soft, non-tender; bowel sounds normal. No peritoneal signs. Indwelling Wilcox + Musculoskeletal: No pedal edema, no cyanosis. Skin: No rash or abscess Hem/Lymphatic: No palpable cervical or supraclavicular nodes. No lymphangitis Psych: Mood ok. Affect normal Neurological: Awake, alert, oriented. No gross abnormality - Constitutional Vitals: Vital Signs Temp Pulse Resp BP Pulse Ox 98.0 F 74 18 135/94 97 07/10/20 07:11 07/10/20 09:59 07/10/20 08:06 07/10/20 09:59 07/10/20 08:06 Temperature -Last 24 Hours Temperature 98.0 F Temperature 98.5 F Temperature 98.5 F Temperature 98.6 F Temperature 98.5 F - Labs CBC & Chem 7: 07/09/20 07:39 07/10/20 08:55 Labs: Abnormal lab results 07/09/20 07/09/20 07/10/20 Range/Units 16:57 20:30 07:30 Potassium (3.6-5.0) mmol/L Carbon Dioxide (22-30) mmol/L BUN (9-20) mg/dL Creatinine (0.8-1.3) mg/dL Glucose (75-100) mg/dL POC Glucose 131 H 119 H 118 H (70-105) Calcium (8.4-10.2) mg/dL 07/10/20 Range/Units 08:55 Potassium 3.4 L (3.6-5.0) mmol/L Carbon Dioxide 20 L (22-30) mmol/L BUN 51 H (9-20) mg/dL Creatinine 1.9 H (0.8-1.3) mg/dL Glucose 123 H (75-100) mg/dL POC Glucose (70-105) Calcium 8.2 L (8.4-10.2) mg/dL
== END 2020-07-10 15:00 | disposition home health service (06) | DRG 871 ==
LOC: ED 19:09 → 4A 07-07 00:16 → OBSVTOIN 07-07 10:29
PROVIDERS: ADMIT Internal Medicine Geriatric Medicine; ATTEND Internal Medicine
DX: A41.9 Sepsis, unspecified organism (principal); N17.0 Acute kidney failure with tubular necrosis; R65.21 Severe sepsis with septic shock; N39.0 Urinary tract infection, site not specified; E87.2 Acidosis; N40.0 Benign prostatic hyperplasia without lower urinary tract symptoms; N13.9 Obstructive and reflux uropathy, unspecified; E78.5 Hyperlipidemia, unspecified; I95.9 Hypotension, unspecified; K52.9 Noninfective gastroenteritis and colitis, unspecified; E83.51 Hypocalcemia; D69.6 Thrombocytopenia, unspecified; I12.9 Hypertensive chronic kidney disease with stage 1 through stage 4 chronic kidney disease, or unspecified chronic kidney disease; N18.9 Chronic kidney disease, unspecified; E11.22 Type 2 diabetes mellitus with diabetic chronic kidney disease; Z86.73 Personal history of transient ischemic attack (TIA), and cerebral infarction without residual deficits; Z79.4 Long term (current) use of insulin
CPT/HCPCS: 36415; 71045; 71250; 74176; 80048; 80053; 80307; 80320; 81001; 82140; 82962; 83690; 83970; 84484; 85007; 85025; 85027; 85610; 87040; 87076; 87086; 87186; 93005; 96365; 96366; G0378; G0480; J0696; J1644; J2405; J7030